=== PATIENT | female | born 1985 | race Caucasian/White ===

== ENCOUNTER → 2019-04-29 | Outpatient (CLI) | payer BC ==
--- NOTE | 2019-04-30 12:00 | REP ---
Clinical: Nontoxic goiter. Technique: Real time miller scale and color evaluation using linear high frequency transducer. Findings: Thyroid gland is relatively homogeneous in parenchymal echo texture and normal in size/contour. Isthmus measures 4.3 mm in width. The right lobe measures 3.7 x 1.4 x 1.7 cm and includes 4 x 3 x 4 mm cyst in the upper pole. Left lobe measures 4.7 x 1.7 x 1.3 cm and includes 2 x 1 x 2 mm cyst in the lower pole. Impression: Essentially unremarkable ultrasound of the thyroid gland. Small nonspecific and likely benign cyst identified bilaterally. Electronically Signed by Rafael Patiño MD 04/30/2019 04:34 A
== END ==
LOC: M RAD 13:42
PROVIDERS: ATTEND Physician Assistant
DX: E04.0 Nontoxic diffuse goiter (principal)

== ENCOUNTER → 2023-10-29 | Outpatient (REF) | payer BC | LOC: M SFHCDERM 07:55 | PROVIDERS: ATTEND Physician Assistant | DX: L40.9 Psoriasis, unspecified (principal) ==

== ENCOUNTER → 2024-06-10 | Outpatient (CLI) | payer BC ==
[2024-06-12 11:08] LABS: QuantiFERON-TB Gold Plus NEGATIVE (NEGATIVE)
== END ==
LOC: M LAB 09:15
PROVIDERS: ATTEND Physician Assistant
DX: L40.9 Psoriasis, unspecified (principal)

== ENCOUNTER 2024-12-16 12:02 | Emergency (ER) | payer BC ==
[~2024-12-16] VITALS: Ht 172.7 cm; Wt 136.0 kg
[2024-12-16] MEDS ORDERED: GUSE100A (12:15)
[2024-12-16 12:53] LABS: BASO % 0.4 % (0.0-1.0); EOS # 0.1 10^3/uL (0.0-0.5); HEMATOCRIT 42.2 % (36.0-47.0); HEMOGLOBIN 13.8 g/dl (12.0-15.5); LYMPH # 1.5 10^3/uL (1.5-5.0); LYMPH % 22.7 % (24.0-44.0); MEAN CORPUSCULAR HEMOGLOBIN 28.3 pg (27.0-33.0); MEAN CORPUSCULAR HGB CONC 32.7 g/dl (32.0-36.5); MEAN CORPUSCULAR VOLUME 86.5 fl (80.0-96.0); MONO # 0.4 10^3/uL (0.0-0.8); MONO % 5.6 % (2.0-8.0); NEUTROPHILS # 4.7 10^3/uL (1.5-8.5); NEUTROPHILS % 69.7 % (36.0-66.0); PLATELET COUNT, AUTOMATED 275 10^3/uL (150-450); RED BLOOD COUNT 4.88 10^6/uL (4.00-5.40); WHITE BLOOD COUNT 6.7 10^3/uL (4.0-10.0)
[2024-12-16 13:10] LABS: ALBUMIN 3.9 G/DL (3.2-5.2); ALKALINE PHOSPHATASE 67 U/L (35-104); ALT/SGPT 36 U/L (7.0-40); AST/SGOT 20 U/L (<34); BILIRUBIN,DIRECT 0.1 MG/DL (<0.4); BILIRUBIN,TOTAL 0.3 MG/DL (0.3-1.2); BLOOD UREA NITROGEN 11 MG/DL (9-23); CALCIUM LEVEL 9.1 MG/DL (8.5-10.1); CARBON DIOXIDE LEVEL 27 MMOL/L (20-31); CHLORIDE LEVEL 104 MMOL/L (98-107); CREATININE FOR GFR 0.55 MG/DL (0.55-1.30); GLOMERULAR FILTRATION RATE > 90.0 (>60); GLUCOSE, FASTING 131 MG/DL (60-100); POTASSIUM SERUM 4.2 MMOL/L (3.5-5.1); SODIUM LEVEL 139 MMOL/L (136-145); TOTAL PROTEIN 7.4 G/DL (5.7-8.2)
[2024-12-16 16:41] VITALS: BP 216/111
[2024-12-16] MEDS: hydrALAZINE 20MG/ML 1ML VIAL IV ONE (16:41)
[2024-12-16] MEDS: ACETAMINOPHEN 500 MG TAB PO ONE (18:25)
[2024-12-16] MEDS: KETOROLAC 30 MG/ML 1ML VIAL IV ONE (18:25)
[2024-12-16] MEDS ORDERED: LISI5TAB11 PO (18:45)
[2024-12-16 18:56] VITALS: BP 142/96; TEMP 98.5; O2SAT 98
== END 2024-12-16 18:58 | disposition home or self-care (01) ==
LOC: M ED 12:02
DX: I10 Essential (primary) hypertension (principal); J44.9 Chronic obstructive pulmonary disease, unspecified; G47.33 Obstructive sleep apnea (adult) (pediatric); L40.9 Psoriasis, unspecified; Z88.1 Allergy status to other antibiotic agents
CPT/HCPCS: 71045; 80048; 80076; 83880; 85025; 93005; 96374; 96375; 99284; J0360; J1885

== ENCOUNTER → 2025-01-01 | Outpatient (REF) | payer BC ==
[~2025-01-01] MED LIST: GUSE100A; LISI5TAB11 PO
[2025-01-01 14:09] LABS: ALBUMIN 3.5 G/DL (3.2-5.2); ALKALINE PHOSPHATASE 69 U/L (35-104); ALT/SGPT 32 U/L (7.0-40); AST/SGOT 19 U/L (<34); BILIRUBIN,DIRECT < 0.1 MG/DL (<0.4); BILIRUBIN,TOTAL 0.3 MG/DL (0.3-1.2); BLOOD UREA NITROGEN 15 MG/DL (9-23); CALCIUM LEVEL 8.9 MG/DL (8.5-10.1); CARBON DIOXIDE LEVEL 26 MMOL/L (20-31); CHLORIDE LEVEL 103 MMOL/L (98-107); CHOLESTEROL LEVEL 197 MG/DL (<200); CHOLESTEROL RISK RATIO 4.88 (<5); CREATININE FOR GFR 0.59 MG/DL (0.55-1.30); GLOMERULAR FILTRATION RATE > 90.0 (>60); GLUCOSE, FASTING 153 MG/DL (60-100); HDL CHOLESTEROL 40.3 MG/DL (>40); LDL CHOLESTEROL 122.3 MG/DL (<100); NON-HDL-C 156.7 MG/DL; POTASSIUM SERUM 4.4 MMOL/L (3.5-5.1); SODIUM LEVEL 139 MMOL/L (136-145); TOTAL PROTEIN 7.2 G/DL (5.7-8.2); TRIGLYCERIDES LEVEL 172 MG/DL (<150)
[2025-01-01 14:10] LABS: THYROID STIMULATING HORMONE 2.793 uIU/ML (0.55-4.78)
[2025-01-01 14:23] LABS: HEMOGLOBIN A1c 6.1 % (4.0-6.0)
== END ==
LOC: M LAB REF 12:42
PROVIDERS: ATTEND Nurse Practitioner Family
DX: R60.0 Localized edema (principal); E66.811 Obesity, class 1

== ENCOUNTER → 2025-03-11 | Outpatient (REF) | payer BC ==
[2025-03-11 12:40] LABS: CALCIUM LEVEL 9.2 MG/DL (8.5-10.1); CARBON DIOXIDE LEVEL 26 MMOL/L (20-31); CHLORIDE LEVEL 104 MMOL/L (98-107); CREATININE FOR GFR 0.70 MG/DL (0.55-1.30); GLOMERULAR FILTRATION RATE > 90.0 (>60); POTASSIUM SERUM 3.9 MMOL/L (3.5-5.1); SODIUM LEVEL 142 MMOL/L (136-145)
== END ==
LOC: M LAB REF 11:53
PROVIDERS: ATTEND Nurse Practitioner Family
DX: I10 Essential (primary) hypertension (principal)